=== PATIENT | male | born 1975 | race Caucasian/White ===

== ENCOUNTER 2019-07-15 09:30 | Emergency (ER) | payer OTHER ==
[~2019-07-15] VITALS: Ht 175.3 cm; Wt 96.0 kg
[2019-07-15 09:48] VITALS: BP 104/69
--- NOTE | 2019-07-15 09:55 | PHYS DOC ---
Past History Additional Past Medical Histor: PTSD,depression Additional Past Surgical Histo: neck surgery Smoking: Non-smoker Adult General Chief Complaint Chief Complaint: COUGH HPI HPI Patient is a 43-year-old male who presents to the emergency department for evaluation. He has had nasal congestion, postnasal drip, and a nonproductive cough, along with some mild intermittent myalgias, to the past 3 weeks. He does report some chest discomfort associated with coughing but has otherwise not had any chest pain. He reports some mild intermittent myalgias, as above. He has not had any significant fevers. He has been taking some Tylenol and NyQuil for his symptoms, intermittently. He states his symptoms are no worse today than they perez ve been in the past, but his decided to have him checked out due to the persistent cough. There are no alleviating or exacerbating factors to his symptoms. Review of Systems Review of Systems Constitutional: Denies fever or chills [] Eyes: Denies change in visual acuity, redness, or eye pain [] HENT: Denies sore throat or otalgia. [] Respiratory: Denies productive cough or shortness of breath [] Cardiovascular: No additional information not addressed in HPI [] GI: Denies abdominal pain, nausea, vomiting, bloody stools or diarrhea [] : Denies dysuria or hematuria [] Musculoskeletal: Denies back pain or joint pain [] Integument: Denies rash or skin lesions [] Neurologic: Denies headache, focal weakness or sensory changes [] Physical Exam Physical Exam PHYSICAL EXAM: CONSTITUTIONAL: Well developed, well nourished HEAD: normocephalic, atraumatic EENT: PERRL, EOMI. Conjunctivae normal color, sclerae non-icteric; moist mucous membranes. The oropharynx and tympanic membranes are unremarkable. NECK: Supple, non-tender; no meningismus. LUNGS: Lungs CTA, breathing even and unlabored. Normal air movement. HEART: Regular rate and rhythm, no murmur CHEST: No deformity; non-tender ABDOMEN: The abdomen is soft, and non-tender, no masses or bruits. EXTREM: Normal ROM; no deformity, no calf tenderness. Normal pulses palpable in all extremities. There is no pedal edema. SKIN: No rash; no diaphoresis NEURO: Alert; normal speech and cognition; CN's grossly intact; strength grossly intact without focal deficit. BACK: No CVA TTP. EKG EKG [] Radiology/Procedures Radiology/Procedures PROCEDURE: CHEST PA & LATERAL EXAM: CHEST 2 VIEWS. HISTORY: Cough, flulike symptoms. COMPARISON: None. FINDINGS: Frontal and lateral views of the chest are obtained. There are no confluent infiltrates. There is no pneumothorax or pleural effusion. The heart is not enlarged. Anterior cervical discectomy and fusion changes are partially visualized. IMPRESSION: 1. No confluent infiltrates. [] Course & Med Decision Making Course & Med Decision Making Pertinent Labs and Imaging studies reviewed. (See chart for details) []Rapid flu negative. Dragon Disclaimer Dragon Disclaimer This electronic medical record was generated, in whole or in part, using a voice recognition dictation system. Departure Departure: Impression: Primary Impression: Upper respiratory infection Disposition: HOME, SELF-CARE Condition: STABLE Referrals: PCP,UNKNOWN (PCP) Patient Instructions: Cough, Adult, Upper Respiratory Infection, Adult KAREN MCCAULEY MD Jul 15, 2019 09:55
--- NOTE | 2019-07-15 10:14 | RAD ---
EXAM: CHEST 2 VIEWS. HISTORY: Cough, flulike symptoms. COMPARISON: None. FINDINGS: Frontal and lateral views of the chest are obtained. There are no confluent infiltrates. There is no pneumothorax or pleural effusion. The heart is not enlarged. Anterior cervical discectomy and fusion changes are partially visualized. IMPRESSION: 1. No confluent infiltrates. Electronically signed by: Lakhwinder Le MD (07/15/2019 10:11 AM) [facility]
[2019-07-15 10:33] LABS: INFLUENZA A PATIENT NEGATIVE (NEGATIVE); INFLUENZA B PATIENT NEGATIVE (NEGATIVE)
== END 2019-07-15 11:00 | disposition home or self-care (01) ==
LOC: ER 09:30
DX: J06.9 Acute upper respiratory infection, unspecified (principal)
CPT/HCPCS: 71046; 87804; 99285